=== PATIENT | female | born 1945 | race Caucasian/White ===

== ENCOUNTER 2018-05-18 15:19 | Outpatient (CLI) | payer MEDICARE, OTHER | END 2018-05-18 15:20 | disposition short-term general hospital (02) | LOC: EMS 15:19 | PROVIDERS: ATTEND Surgery | DX: K80.50 Calculus of bile duct without cholangitis or cholecystitis without obstruction (principal) | CPT/HCPCS: A0170; A0425; A0428 ==

== ENCOUNTER 2018-05-21 05:00 | Outpatient (CLI) | payer MEDICARE, OTHER | END 2018-05-21 05:01 | disposition EMS.NT | LOC: EMS 05:00 | PROVIDERS: ATTEND Surgery | DX: Z03.89 Encounter for observation for other suspected diseases and conditions ruled out (principal) ==

== ENCOUNTER 2018-05-29 16:53 | Outpatient (CLI) | payer MEDICARE ==
--- NOTE | 2018-05-29 21:27 | XRAY Report ---
Reason: PAIN IN LEFT/RIGHT HAND Procedure Date: 05/29/2018 Accession Number: [id number] / [id number] Procedure: XR - Hand 3 View BILAT CPT Code: FULL RESULT: EXAMS: 1. Right Hand Radiography 2. Left Hand Radiography EXAM DATE: 05/29/2018 04:56 PM. CLINICAL HISTORY: PAIN IN LEFT/RIGHT HAND. COMPARISON: HAND 3 VIEW LT 06/01/2014 4:27 PM. TECHNIQUE: 3 views each hand. FINDINGS: Right: Bones: Normal. No fractures or bone lesions. Joints: Severe osteoarthritis, worst at the first carpometacarpal joint. Soft Tissues: Normal. No soft tissue swelling. Left: Bones: Normal. No fractures or bone lesions. Joints: Severe osteoarthritis, worst at the first carpometacarpal joint. Soft Tissues: Normal. No soft tissue swelling. IMPRESSION: Severe bilateral osteoarthritis. RADIA
== END 2018-05-29 16:54 | disposition home or self-care (01) ==
LOC: DI 16:53
PROVIDERS: ATTEND Physician Assistant
DX: M19.041 Primary osteoarthritis, right hand (principal); M19.042 Primary osteoarthritis, left hand

== ENCOUNTER 2019-05-03 13:25 | Emergency (ER) | payer MEDICARE ==
[2019-05-03] MEDS ORDERED: TETANUS/DIPHTHERIA/PERTUSSIS 0.5 ML SYRINGE IM ONE (14:36)
--- NOTE | 2019-05-03 14:48 | ED Physician Documentation ---
History of Present Illness - Stated complaint Stated Complaint: HEAD LAC - Chief complaint Chief Complaint: Laceration - Additonal information Additional information: This is a 73-year-old female who presents with a scalp laceration. She is moving a post, when it fell on hit her head lacerating it. She did not lose consciousness, she denies confusion, she has some throbbing at the site of the wound, but states this is mild. She is not on any blood thinners. No vomiting. 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 HEENT: None Psych: None Musculoskeletal: Other Derm: None - Past Surgical History Past Surgical History: Yes General: Appendectomy, Other Derm: Skin cancer surgery - Present Medications Home Medications: Ambulatory Orders Medication Instructions Recorded Confirmed Amitriptyline [Elavil] 100 mg PO QPM 06/01/14 05/18/18 - Allergies Allergies/Adverse Reactions: Allergies Allergy/AdvReac Type Severity Reaction Status Date / Time No Known Drug Allergies Allergy Verified 05/03/19 13:42 - Social History Does the pt smoke?: No Smoking Status: Never smoker Does the pt drink ETOH?: Yes Does the pt have substance abuse?: No - POLST Patient has POLST: No POLST Status: As long as she has an illness that is reversible and treatable, she wants everything done. But if it looks like she is in the twilight of life, not really begun to recover to be independent, she wants us to let her go. PD ED PE NORMAL - General General: Alert and oriented X 3 - HEENT HEENT: Other (3.5 cm laceration in the frontal scalp. This extends into the s ubcutaneous tissue, there is no galeal involvement. No foreign body. No significant hematoma around the wound. Remainder of the head is atraumatic) - Neck Neck: Other (Atraumatic) - Cardiac Cardiac: Other (Well-perfused extremities) - Respiratory Respiratory: No respiratory distress - Neuro Neuro: Alert and oriented X 3, No motor deficit, No sensory deficit, Normal speech Results - Vitals Vitals: Vital Signs - 24 hr 05/03/19 13:40 Temperature 36.9 C Heart Rate 93 Respiratory 16 Rate Blood Pressure 148/90 H O2 Saturation 95 Oxygen O2 Source Room air Procedures - Laceration (location) Scalp Length in cm: 3.5 Wound type: Linear Wound Preparation: Irrigated copiously NS, Wound explored, To the base Skin layer closure: Dilma (4) Other: Patient tolerated well, No complications Complexity: Simple PD MEDICAL DECISION MAKING - ED course ED course: Patient presents with laceration to her scalp. She has no loss of consciousness, normal mentation, no vomiting, no severe headache, normal neurologic exam. Given the mechanism of the injury, it is highly unlikely that she has any intracranial bleed. Scalp wound was repaired as noted above. I discussed wound care and return precautions with the patient, as well as that she had the dilma removed in around 10 days. I also discussed that if she has any changes in level conscious, confusion, severe headache, or other concerning symptoms she should return to the emergency department. Patient agrees with plan and was discharged home in the care of family Departure - Departure Disposition: 01 Home, Self Care Clinical Impression: Laceration of scalp Qualifiers: Encounter type: initial encounter Qualified Code(s): S01.01XA - Laceration without foreign body of scalp, initial encounter Condition: Good Instructions: ED Laceration Scalp Stitch Or Stap Follow-Up: Shayna Young PA [Primary Care Provider] - (For staple removal in 10 days) Comments: You have a laceration of your scalp which was repaired with dilma. Please get these removed in around 10 days. If you are developing any signs of infection around the wound, or any other concerning symptoms such as confusion, severe headache, please return to the emergency department. It is okay to take Tylenol and ibuprofen for discomfort. Apply thin layer of Vaseline or antibiotic ointment over the wound in order to keep it from crusting and scabbing. It is okay to shower let water run over it, but do not scrub at the wound.
[2019-05-03] MEDS ORDERED: ACETAMINOPHEN 325 MG TABLET PO STA (15:23)
[2019-05-03] MEDS ORDERED: IBUPROFEN 600 MG TABLET PO STA (15:23)
[2019-05-03 16:05] VITALS: BP 141/91
== END 2019-05-03 16:05 | disposition home or self-care (01) ==
LOC: ED 13:25
DX: S01.01XA Laceration without foreign body of scalp, initial encounter (principal); W20.8XXA Other cause of strike by thrown, projected or falling object, initial encounter; Y93.89 Activity, other specified
CPT/HCPCS: 12002; 90471; 90715; 99282; 99283; A9270

== ENCOUNTER 2020-05-25 13:48 | Outpatient (CLI) | payer MEDICARE, OTHER ==
--- NOTE | 2020-05-26 13:39 | Mammography Report ---
BILATERAL DIGITAL SCREENING MAMMOGRAM 3D/2D: 05/25/2020 CLINICAL: Routine screening. Comparison is made to exams dated: 06/01/2015 mammogram and 03/01/2013 mammogram - [facility]. The tissue of both breasts is predominantly fatty. No significant masses, calcifications, or other findings are seen in either breast. There has been no significant interval change. IMPRESSION: NEGATIVE There is no mammographic evidence of malignancy. A 1 year screening mammogram is recommended. This exam was interpreted at Station ID: [id number]. NOTE: For mammograms, a report in lay terms will be sent to the patient. Approximately 15% of breast malignancies will not be visualized mammographically. In the management of a palpable breast mass, a negative mammogram must not discourage biopsy of a clinically suspicious lesion. Electronically Signed By: Josh Garcia M.D. [facility] [place]:05/25/2020 16:02:01 ACR BI-RADS Category 1: Negative 3341F PARENCHYMAL PATTERN: (F) - The breast(s) demonstrate(s) diffuse fatty replacement. BI-RADS CATEGORY: (1) - 1 RECOMMENDATION: (ANNUAL) - Recommend routine annual screening mammography. [id number] 1 year screening LATERALITY: (B)
== END 2020-05-25 13:49 | disposition home or self-care (01) ==
LOC: DI.N 13:48
DX: Z12.31 Encounter for screening mammogram for malignant neoplasm of breast (principal)
CPT/HCPCS: 77063; 77067

== ENCOUNTER 2020-09-24 16:38 | Outpatient (CLI) | payer MEDICARE, OTHER ==
--- NOTE | 2020-09-24 17:20 | XRAY Report ---
PROCEDURE: Knee 3 View RT INDICATIONS: PX IN RT KNEE TECHNIQUE: 3 views of the right knee(s) were acquired. COMPARISON: None. FINDINGS: There is no fracture or dislocation. Excm-md-pnytzjbv joint space narrowing in the femorotibial and p atellofemoral compartments with marginal osteophytosis. No findings of chondrocalcinosis, subchondral sclerosis, or subchondral cystic change. Moderate-sized suprapatellar knee joint effusion. Regional soft tissues otherwise unremarkable. IMPRESSION: Mild to moderate osteoarthritic change about the knee. Moderate sized suprapatellar knee joint effusion. If there is concern for fracture, CT or MRI would be recommended. Reviewed by: Ghassan Mcneil MD on 09/24/2020 5:19 PM PDT Approved by: Ghassan Mcneil MD on 09/24/2020 5:19 PM PDT Station ID: [id number]
== END 2020-09-24 16:39 | disposition home or self-care (01) ==
LOC: DI.S 16:38
PROVIDERS: ATTEND Nurse Practitioner Family
DX: M17.11 Unilateral primary osteoarthritis, right knee (principal); M25.461 Effusion, right knee

== ENCOUNTER 2020-12-10 07:55 | Outpatient (CLI) | payer MEDICARE, OTHER ==
--- NOTE | 2020-12-10 09:23 | XRAY Report ---
PROCEDURE: Knee 4 View RT INDICATIONS: R KNEE PX TECHNIQUE: 4 views of the right knee(s) were acquired. COMPARISON: None. FINDINGS: Bones: No fractures or dislocations. There are degenerative changes of the right knee with lateral c ompartment joint space narrowing. There are tricompartmental osteophytes consistent with osteoarthrit is. The patellofemoral joint has osteophytosis laterally. An irregular appearance of the lateral mcgill lla with a lateral osteophyte and a subtle lucency is unchanged compared to the prior x-ray. No suspi cious bony lesions. Soft tissues: Moderate sized suprapatellar joint effusion. No suspicious soft tissue calcifications. IMPRESSION: 1. Tricompartmental degenerative changes of the right knee with lateral compartment joint space narro wing consistent with osteoarthritis. 2. No acute abnormality. Irregularity of the lateral patella with a subtle linear lucency is unchange d compared to prior x-rays. If there is further concern for fracture. CT would be recommended. Reviewed by: Rush Brown on 12/10/2020 9:22 AM PDT Approved by: Rush Brown on 12/10/2020 9:22 AM PDT Station ID: [id number]
== END 2020-12-10 23:59 | disposition home or self-care (01) ==
LOC: DI.N 07:55
PROVIDERS: ATTEND Orthopaedic Surgery
DX: M17.11 Unilateral primary osteoarthritis, right knee (principal)

== ENCOUNTER 2020-12-24 08:00 | Outpatient (CLI) | payer MEDICARE, OTHER ==
--- NOTE | 2020-12-25 08:23 | XRAY Report ---
PROCEDURE: Foot 3 View LT INDICATIONS: CONTUSION OF LEFT FOOT AND ANKLE TECHNIQUE: 3 views of the foot were acquired. COMPARISON: None. FINDINGS: Bones: No fractures or dislocations. No suspicious bony lesions. Diffuse interphalangeal degenerat yakelin joint disease Mild first MTP osteoarthritis. Incidentally noted os peroneum. Soft tissues: No tibiotalar joint effusion. Achilles tendon appears normal. IMPRESSION: No definite fracture however follow-up radiographs in 10 days could be performed if the patient's sym ptoms do not improve to exclude occult fracture/assess for healing sclerosis. Reviewed by: Mario Garcia MD on 12/25/2020 8:22 AM PDT Approved by: Mario Garcia MD on 12/25/2020 8:22 AM PDT Station ID: [id number]
--- NOTE | 2020-12-25 10:12 | XRAY Report ---
PROCEDURE: Ankle 3 View LT INDICATIONS: CONTUSION OF LEFT FOOT AND ANKLE TECHNIQUE: 3 views of the ankle were acquired. COMPARISON: None FINDINGS: Bones: No dislocations. Ankle mortise is normally aligned. No suspicious bony lesions. There is a diagonal fracture through the distal fibular metadiaphyseal junction, slightly displaced. Soft tissu e swelling is present over the lateral malleolus. Soft tissues: No tibiotalar joint effusion. Achilles tendon appears normal. IMPRESSION: Distal fibular/lateral malleolar diagonal fracture with mild displacement. No additional trauma elsewhere is found. Reviewed by: Renzo Murphy MD on 12/25/2020 10:11 AM PDT Approved by: Renzo Murphy MD on 12/25/2020 10:11 AM PDT Station ID: [id number]
== END 2020-12-24 23:59 | disposition home or self-care (01) ==
LOC: DI.S 08:00
PROVIDERS: ATTEND Emergency Medicine
DX: S90.02XA Contusion of left ankle, initial encounter (principal); S82.62XA Displaced fracture of lateral malleolus of left fibula, initial encounter for closed fracture; M19.072 Primary osteoarthritis, left ankle and foot

== ENCOUNTER 2021-01-05 10:45 | Outpatient (CLI) | payer MEDICARE, OTHER ==
--- NOTE | 2021-01-05 14:21 | XRAY Report ---
PROCEDURE: Ankle 3 View LT INDICATIONS: NONDISPLACED FX OF LATERAL MALLEOLUS TECHNIQUE: 3 views of the ankle were acquired. COMPARISON: X-ray foot/ankle 12/24/2020 FINDINGS: Bones: There is an unchanged appearance of mildly displaced spiral fracture within the distal fibula. Tibiotalar joint space is maintained. Overall appearance has not appreciably changed. Ankle mortise is normally aligned. Soft tissues: Persistent lateral malleoli or effusion. Achilles tendon appears normal. IMPRESSION: Unchanged appearance of mildly displaced distal fibular fracture. Reviewed by: Vivian Pinto MD on 01/05/2021 2:19 PM PDT Approved by: Vivian Pinto MD on 01/05/2021 2:19 PM PDT Station ID: [id number]
== END 2021-01-05 23:59 | disposition home or self-care (01) ==
LOC: DI.N 10:45
PROVIDERS: ATTEND Orthopaedic Surgery
DX: S82.442A Displaced spiral fracture of shaft of left fibula, initial encounter for closed fracture (principal)

== ENCOUNTER 2021-02-22 08:45 | Outpatient (CLI) | payer MEDICARE, OTHER ==
--- NOTE | 2021-02-22 12:39 | XRAY Report ---
PROCEDURE: Ankle 3 View LT INDICATIONS: NONDISPLACED FX OF LATERAL MALLEOLUS OF LEFT FIBULA TECHNIQUE: 3) views of the ankle were acquired. COMPARISON: 01/05/2021 FINDINGS: Bones: Oblique fracture through the distal fibular metaphysis shows remodeling the fracture lines and vision callus present distally. Fracture line is still visible in the proximal fracture. Ankle morti se is maintained Soft tissues: No tibiotalar joint effusion. Achilles tendon appears normal. Mild generalized soft tissue swelling. No radiopaque foreign body. IMPRESSION: Healing distal fibular fracture Reviewed by: Kerwin Guy MD on 02/22/2021 11:37 AM WILLA Approved by: Kerwin Guy MD on 02/22/2021 11:37 AM WILLA Station ID: [id number]
== END 2021-02-22 23:59 | disposition home or self-care (01) ==
LOC: DI.N 08:45
PROVIDERS: ATTEND Orthopaedic Surgery
DX: S82.432D Displaced oblique fracture of shaft of left fibula, subsequent encounter for closed fracture with routine healing (principal)

== ENCOUNTER 2022-05-18 14:21 | Outpatient (CLI) | payer MEDICARE, OTHER ==
--- NOTE | 2022-05-18 16:28 | DEXA Report ---
PROCEDURE: Dexa Spine and/or Hip INDICATIONS: ASYMPTOMATIC MENOPAUSAL STATE TECHNIQUE: Dual energy x-ray absorptiometry (DXA) was performed on a [employer] System. Regions measur ed are the AP Spine, femoral neck, and if needed forearm. COMPARISON: None. FINDINGS: Lumbar Spine: Bone Mineral Density 1.0 g/cm/cm,T score -1.7, osteopenia Left Hip: Bone Mineral Density 0.8 g/cm/cm,T score -1.5, osteopenia Impression: Osteopenia. Patients with diagnosis of osteoporosis or osteopenia should have regular bone mineral density assess ment. For those eligible for Medicare, routine testing is allowed once every 2 years. Testing frequ ency can be increased for patients who have rapidly progressing disease or for those who are receivin g medical therapy to restore bone mass. Reviewed by: Yao Oconnell MD on 05/18/2022 4:26 PM PST Approved by: Yao Oconnell MD on 05/18/2022 4:26 PM PST Station ID: [id number]
== END 2022-05-18 14:22 | disposition home or self-care (01) ==
LOC: DI 14:21
PROVIDERS: ATTEND Nurse Practitioner Family
DX: Z78.0 Asymptomatic menopausal state (principal); M85.89 Other specified disorders of bone density and structure, multiple sites

== ENCOUNTER 2022-07-20 07:30 | Day surgery (SDC) | payer MEDICARE, OTHER ==
--- NOTE | 2022-07-20 06:52 | ANESTHESIA ---
Pre-Anesthesia VS, & Labs - Diagnosis positive cologuard - Procedure screening colonoscopy Height: 5 ft - NPO >8 hours, Other (prep as directed) - Is Patient ?: No Home Medications and Allergies Home Medications: Ambulatory Orders Rosuvastatin Calcium [Crestor] 10 mg PO HS 07/19/22 Amitriptyline [Elavil] 100 mg PO QPM 06/01/14 Rosuvastatin Calcium [Crestor] 10 mg PO HS 07/19/22 Allergies/Adverse Reactions: Allergies Allergy/AdvReac Type Severity Reaction Status Date / Time No Known Drug Allergies Allergy Verified 05/03/19 13:42 Anes History & Medical History - Anesthetic History Anesthesia Complications: reports: No previous complications - Medical History Cardiovascular: reports: High cholesterol Pulmonary: reports: Asthma (environmental allergies) Gastrointestinal: reports: None Urinary: reports: Other Neuro: reports: None Musculoskeletal: reports: Other Endocrine/Autoimmune: reports: None Blood Disorders: reports: None Skin: reports: Other Smoking Status: Never smoker History of Cancer?: Yes - Surgical History General: reports: Cholecystectomy, Appendectomy Urologic: reports: Nephrectomy Dermatologic: reports: Skin cancer surgery Exam General: Alert, Oriented x3 Dental: WNL Mouth Opening: Greater than 4 Fingerbreadths Neck Mobility: Normal Mallampati classification: II Thyromental Distance: greater than 6 cm Respiratory: Lungs clear Cardiovascular: Regular rate Plan Anesthesia Type: Total IV Consent for Procedure(s) Verified and Reviewed: Yes Code Status: Attempt Resuscitation ASA classification: 2-Mild systemic disease Is this case an emergency?: No
[2022-07-20] MEDS ORDERED: LACTATED RINGERS 1,000 ML IV ONE (07:49)
[2022-07-20] MEDS ORDERED: PROPOFOL 500 MG/50 ML 500 MG/50 ML VIAL ONE (08:33)
[2022-07-20] MEDS ORDERED: LACTATED RINGERS 700 ML IV ONE (09:33)
[2022-07-20 09:40] VITALS: BP 126/74
--- NOTE | 2022-07-20 10:38 | ANESTHESIA POST OP EVALUATION ---
Anesthesia Post Eval - Post Anesthesia Eval Vitals: Last Vital Signs Temp 36.3 C L 07/20/22 09:39 Pulse 91 07/20/22 09:39 Resp 16 07/20/22 09:39 BP 126/74 07/20/22 09:39 Pulse Ox 96 07/20/22 09:39 O2 Flow Rate CV Function Including HR & BP: Stable Pain Control: Satisfactory Nausea & Vomiting: Negative Mental Status: Baseline Respiratory Status: Airway Patent Hydration Status: Satisfactory Anesthesia Complications: None
== END 2022-07-20 07:31 | disposition home or self-care (01) ==
LOC: SDS 07:30
PROVIDERS: ATTEND Surgery
PROC: 0DBK8ZZ Excision of Ascending Colon, Via Natural or Artificial Opening Endoscopic (ICD-10-PCS; principal; 2022-07-20 08:30)
DX: R19.5 Other fecal abnormalities (principal); D12.2 Benign neoplasm of ascending colon; K57.30 Diverticulosis of large intestine without perforation or abscess without bleeding; K64.8 Other hemorrhoids; E66.9 Obesity, unspecified; Z68.33 Body mass index [BMI] 33.0-33.9, adult; J45.909 Unspecified asthma, uncomplicated; Z87.891 Personal history of nicotine dependence
CPT/HCPCS: 45385; J7120

== ENCOUNTER 2022-08-19 10:47 | Outpatient (CLI) | payer MEDICARE, OTHER ==
--- NOTE | 2022-08-19 11:52 | XRAY Report ---
PROCEDURE: Knee 3 View LT INDICATIONS: PAIN OF LEFT KNEE JOINT TECHNIQUE: 3 views of the left knee were acquired. COMPARISON: None. FINDINGS: Bones: No acute fractures or dislocations. No suspicious bony lesions. Very mild narrowing of the m edial femorotibial compartment joint space. Small suprapatellar enthesophyte. Soft tissues: No joint effusion. No suspicious soft tissue calcifications. IMPRESSION: Minimal degenerative changes. No acute osseous abnormality. If symptoms persist or there is continued clinical concern, further evaluation with MRI or CT may be helpful. Reviewed by: Zachary Frey MD on 08/19/2022 11:51 AM PST Approved by: Zachary Frey MD on 08/19/2022 11:51 AM PST Station ID: [id number]
== END 2022-08-19 10:48 | disposition home or self-care (01) ==
LOC: DI.S 10:47
PROVIDERS: ATTEND Physician Assistant
DX: M17.12 Unilateral primary osteoarthritis, left knee (principal)

== ENCOUNTER 2022-10-26 15:51 | Outpatient (CLI) | payer MEDICARE, OTHER ==
--- NOTE | 2022-10-26 18:03 | XRAY Report ---
PROCEDURE: Tib/Fib LT INDICATIONS: PAIN IN LEFT LOWER LEG TECHNIQUE: 2 views of the tibia and fibula were acquired. COMPARISON: None. FINDINGS: Bones: Normal bone mineralization present. Old healed distal fibular fracture present. No lytic or b lastic lesions Soft tissues: No suspicious soft tissue calcifications or masses. IMPRESSION: Old healed distal fibular fracture Reviewed by: Kerwin Guy MD on 10/26/2022 5:02 PM WILLA Approved by: Kerwin Guy MD on 10/26/2022 5:02 PM AKDT Station ID: [id number]
== END 2022-10-26 23:59 | disposition home or self-care (01) ==
LOC: DI.S 15:51
PROVIDERS: ATTEND Nurse Practitioner
DX: M79.662 Pain in left lower leg (principal); S82.832D Other fracture of upper and lower end of left fibula, subsequent encounter for closed fracture with routine healing

== ENCOUNTER 2023-04-20 08:00 | Outpatient (CLI) | payer MEDICARE ==
--- NOTE | 2023-04-20 19:27 | XRAY Report ---
PROCEDURE: Abdomen 2 View X-Ray INDICATIONS: CONSTIPATION TECHNIQUE: 2 views of the abdomen were acquired. COMPARISON: None. FINDINGS: Surgical changes and devices: Surgical clips in the right upper quadrant. Fallopian tube occlusion c lips noted as well. Bowel: No pneumoperitoneum. The bowel gas pattern is normal. Moderate fecal debris throughout the c olon Soft tissues: No masses; visualized solid organ contours appear normal in size. No suspicious abdom inal calcifications. Bones: No suspicious bony abnormalities. IMPRESSION: Moderate fecal debris throughout the colon. No obstruction. Reviewed by: Kerwin Guy MD on 04/20/2023 6:26 PM WILLA Approved by: Kerwin Guy MD on 04/20/2023 6:26 PM AKDT Station ID: [id number]
== END 2023-04-20 23:59 | disposition home or self-care (01) ==
LOC: DI.S 08:00
PROVIDERS: ATTEND Physician Assistant
DX: K59.00 Constipation, unspecified (principal)

== ENCOUNTER 2024-02-06 00:31 | Outpatient (CLI) | payer MEDICARE | END 2024-02-06 23:59 | disposition left against medical advice (07) | LOC: EMS 00:31 | DX: S61.531A Puncture wound without foreign body of right wrist, initial encounter (principal); W54.0XXA Bitten by dog, initial encounter; Y92.009 Unspecified place in unspecified non-institutional (private) residence as the place of occurrence of the external cause ==

== ENCOUNTER 2024-02-06 02:41 | Emergency (ER) | payer MEDICARE ==
--- NOTE | 2024-02-06 03:11 | ED Physician Documentation ---
PD HPI UPPER EXT INJURY - Stated complaint Stated Complaint: DOG BITE R WRIST - Chief complaint Chief Complaint: Wound - History obtained from History obtained from: Patient, Family (daughter) - History of Present Illness Location: Right, Wrist Type of injury: Other (dog bite) Where injury occurred: Home Timing - onset: Today Timing - duration: Hours Timing - details: Abrupt onset, Still present Improved by: Rest Worsened by: Moving, Palpating Associated symptoms: No: Weakness, Numbness, Tingling, Swelling, Discolored Contributing factors: No: Anticoagulated Similar symptoms before: Has not had sx before Recently seen: Not recently seen - Additonal information Additional information: Nadia Stuart is a 78-year-old female who has a bulldog named Manuel who was in her bed with her this evening and he was drooling on the bed and the patient pushed him away the second time she pushed away he bit her wrist. He did puncture the skin and bleeding was involved. Paramedics were called to the house and they suggested the patient come to the emergency department for further evaluation. The patient was able to control the bleeding with direct pressure a bandages been placed and she is here now for treatment. She is up-to-date on her tetanus as is Manuel. 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 HEENT: Chronic vision loss, Chronic hearing loss Psych: None Musculoskeletal: Other Derm: Other - Past Surgical History Past Surgical History: Yes General: Cholecystectomy, Appendectomy Derm: Skin cancer surgery - Present Medications Home Medications: Ambulatory Orders Medication Instructions Recorded Confirmed Amitriptyline [Elavil] 100 mg PO QPM 06/01/14 07/19/22 Rosuvastatin Calcium [Crestor] 10 mg PO HS 07/19/22 07/20/22 Amox/Clav 875/125 [Augmentin] 1 each PO Q12H #10 tablet 02/06/24 - Allergies Allergies/Adverse Reactions: Allergies Allergy/AdvReac Type Severity Reaction Status Date / Time No Known Drug Allergies Allergy Verified 02/06/24 02:50 - Social History Does the pt smoke?: No Smoking Status: Never smoker Does the pt drink ETOH?: Yes Does the pt have substance abuse?: No - Immunizations Immunizations are current?: No - POLST Patient has POLST: No POLST Status: As long as she has an illness that is reversible and treatable, she wants everything done. But if it looks like she is in the twilight of life, not really begun to recover to be independent, she wants us to let her go. PD ED PE NORMAL - Vitals Vital signs reviewed: Yes (hypertensive ) - General General: Alert and oriented X 3, No acute distress, Well developed/nourished - HEENT HEENT: Atraumatic, PERRL, EOMI - Respiratory Respiratory: No respiratory distress - Extremities Extremities: No deformity, Other (There is a 1cm laceration with a puncture over the right wrist dorsally over the distal ulna. 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, No motor deficit, No sensory deficit, Normal speech Eye Opening: Spontaneous Motor: Obeys Commands Verbal: Oriented GCS Score: 15 - Psych Psych: Normal mood, Normal affect Results - Vitals Vitals: Vital Signs - 24 hr 02/06/24 02:47 Temperature 36.3 C L Heart Rate 84 Respiratory 22 Rate Blood Pressure 165/81 H O2 Saturation 94 Oxygen O2 Source Room air PD Medical Decision Making - ED course Complexity details: considered differential, d/w patient, d/w family ED course: 78-year-old female with a dog bite to the right wrist does have a puncture wound the area is cleansed and dressed and will be left open. She is administered a dose of Augmentin 875. She is up-to-date on her tetanus. Departure - Departure Disposition: 01 Home, Self Care Clinical Impression: Animal bite with open wound Condition: Stable Instructions: ED Bite Dog Follow-Up: Lana Russell ARNP [Primary Care Provider] - Prescriptions: Amox/Clav 875/125 [Augmentin] 1 each PO Q12H #10 tablet Comments: Nadia, there is a puncture wound to your wrist and these frequently will become infected. We have left the wound open as this will need to drain somewhere. We have also placed you on a course of prophylactic antibiotic. If you have excessive swelling redness and drainage despite this treatment a follow-up is recommended. I have E scribed some Augmentin to the [facility] in [place]. Our expectation with treatment is some redness around the margins of the wound at about day 3 with some minor drainage. The wound will close over a 3 week period with most of the wound resolved withing the first week. Forms: PCP List
[2024-02-06] MEDS: BACITRACIN ZINC OINT 1 PACKET TOP STA (03:21)
[2024-02-06] MEDS: AMOX/CLAV 875 MG/125 MG TABLET PO STA (03:21)
[2024-02-06 03:34] VITALS: BP 157/80; O2SAT 99
== END 2024-02-06 03:24 | disposition home or self-care (01) ==
LOC: ED 02:41
DX: S61.551A Open bite of right wrist, initial encounter (principal); W54.0XXA Bitten by dog, initial encounter; Y92.003 Bedroom of unspecified non-institutional (private) residence as the place of occurrence of the external cause; E78.00 Pure hypercholesterolemia, unspecified; Z79.899 Other long term (current) drug therapy
CPT/HCPCS: 99283; A9270